=== PATIENT | female | born 1960 | race Caucasian/White ===

== ENCOUNTER 2020-05-16 15:35 | Outpatient (RCR) | payer OTHER, SELFPAY ==
[2020-05-16] MEDS: COVID-19 VACC, MRNA(PFIZER)/PF 30 MCG/0.3 ML SYRINGE IM (17:17)
[2020-06-06] MEDS: COVID-19 VACC, MRNA(PFIZER)/PF 30 MCG/0.3 ML SYRINGE IM (17:01)
== END 2020-08-13 23:59 ==
LOC: IMMUN 15:35
PROVIDERS: Visit Provider Family Medicine
DX: Z23 Encounter for immunization (principal)
CPT/HCPCS: 0001A; 0002A; 91300

== ENCOUNTER 2021-02-21 05:37 | Day surgery (SDC) | payer OTHER, SELFPAY ==
[2021-02-21] VITALS (12 sets, daily range): BP systolic 98–159; BP diastolic 58–128; PULSE 56–81; RESP 14–16; TEMP 36.1–36.6; O2SAT 92–100; BMI 29.5
[2021-02-21] MEDS: Lactated Ringers 1,000 ML 15 ML IV (06:12)
--- NOTE | 2021-02-21 06:20 | HP.PCM_ITS ---
HPI - General HPI Narrative CYRUS ZHOU, is a 61 F who presents screening colonoscopy. Her father has colon cancer. The patient's previous colonoscopy was 5 years ago. She has no specific complaints currently. [facility] Medical History (Updated 02/21/21 @ 06:[address] Zeus Jernigan MD) Non-smoker Wears glasses Home Medications NK 02/20/21 [History Last Taken Unknown] Allergy/AdvReac Type Severity Reaction Status Date / Time No Known Allergies Allergy Verified 02/21/21 06:03 Surgical History (Updated 02/20/21 @ 10:23 by Tonie Beltre) History of suburethral sling procedure Hx of colonoscopy Social History Smoking Status: Never smoker ROS Constitutional Constitutional: Reports systems reviewed and no addt'l complaints, except as documented Cardiovascular Cardiovascular: Denies chest pain Respiratory/Chest Respiratory/Chest: Denies shortness of breath at rest Gastrointestinal Gastrointestinal: Denies abdominal pain, change in bowel habits, hematochezia or melena Vital Signs Vital Signs Vital Signs: 02/21/21 06:04 Temperature 98 F Temperature Source Temporal Pulse Rate 81 Respiratory Rate 16 Respiratory Pattern Normal Blood Pressure 129/81 H Blood Pressure Mean 97 Blood Pressure Source Monitor Blood Pressure Position Semi-Fowlers Blood Pressure Location Right Arm Pulse Ox 96 Oxygen Delivery Method Room Air Weight Weight: 171 lb 15.369 oz Body Mass Index (BMI) 29.5 Physical Exam Const alert, oriented x3 and no apparent distress General Appearance: cooperative and comfortable Eyes General Eye: normal appearance of both eyes Neck General: normal visual inspection Chest inspection of chest normal Resp Effort and Inspection: able to speak in complete sentences and symmetric chest movement Auscultation: clear to auscultation bilaterally Cardio regular rate and regular rhythm GI soft to palpation, non-tender and non-distended Extremity no calf tenderness Neuro oriented x3 Psych thought process normal Assessment & Plan Assessment/Plan (1) Family history of colon cancer in father: PLAN: Family history of colon cancer in her father. Patient presents via open access today. I propose for her a colonoscopy with possible biopsy or polypectomy as indicated. She is aware of the technique, benefit, risk, alternatives. We will proceed as noted. Zeus Jernigan M.D., F.A.C.S.
--- NOTE | 2021-02-21 07:02 | OP.COLON_ITS ---
Patient Name: Liberty Acosta Procedure Date: 02/21/2021 6:14 AM Date of : 1960 Age: 61 Procedure: Colonoscopy Indications: Family history of colon cancer in a first-degree relative Providers: Zeus Jernigan MD Medicines: Midazolam 3.5 mg IV, Meperidine 100 mg IV Patient Profile: Last Colonoscopy: 5 years ago. Complications: No immediate complications. Procedure: Pre-Anesthesia Assessment: - Prior to the procedure, a History and Physical was performed, and patient medications and allergies were reviewed. The patient's tolerance of previous anesthesia was also reviewed. The risks and benefits of the procedure and the sedation options and risks were discussed with the patient. All questions were answered, and informed consent was obtained. Prior Anticoagulants: The patient has taken no previous anticoagulant or antiplatelet agents. ASA Grade Assessment: II - A patient with mild systemic disease. After reviewing the risks and benefits, the patient was deemed in satisfactory condition to undergo the procedure. After I obtained informed consent, the scope was passed under direct vision. Throughout the procedure, the patient's blood pressure, pulse, and oxygen saturations were monitored continuously. The Colonoscope was introduced through the anus and advanced to the cecum, identified by appendiceal orifice and ileocecal valve. The colonoscopy was performed without difficulty. The patient tolerated the procedure well. The quality of the bowel preparation was good. The ileocecal valve and the appendiceal orifice were photographed. Moderate Sedation: Moderate (conscious) sedation was administered by the endoscopy nurse and supervised by the endoscopist. The following parameters were monitored: oxygen saturation, heart rate, blood pressure, and response to care. Total physician intraservice time was 15 minutes. Scope In: 6:47:46 AM Scope Withdrawal Time 0 hours 6 minutes 42 seconds Scope Out: 6:58:16 AM Total Procedure Duration Time 0 hours 10 minutes 30 seconds Findings: The perianal and digital rectal examinations were normal. A few diverticula were found in the sigmoid colon. The exam was otherwise without abnormality. Impression: - Diverticulosis in the sigmoid colon. - The examination was otherwise normal. - No specimens collected. Recommendation: - Discharge patient to home. - Resume previous diet. - Continue present medications. - Repeat colonoscopy in 5 years for surveillance. Procedure Code(s): --- Professional --- 99176, Colonoscopy, flexible; diagnostic, including collection of specimen(s) by brushing or washing, when performed (separate procedure) 50393, 59, Moderate sedation services provided by the same physician or other qualified health technical healthcare consultant performing the diagnostic or therapeutic service that the sedation supports, requiring the presence of an independent trained observer to assist in the monitoring of the patient's level of consciousness and physiological status; initial 15 minutes of intraservice time, patient age 5 years or older Diagnosis Code(s): --- Professional --- Z80.0, Family history of malignant neoplasm of digestive organs K57.30, Diverticulosis of large intestine without perforation or abscess without bleeding CPT copyright 2017 [employer]. All rights reserved. The codes documented in this report are preliminary and upon group dynamics instructor review may be revised to meet current compliance requirements. Zeus Jernigan MD 02/21/2021 7:02:20 AM This report has been signed electronically. Number of Addenda: 0 Note Initiated On: 02/21/2021 6:14 AM
--- NOTE | 2021-02-21 07:02 | OP.CCLET_ITS ---
02/21/2021 No Primary Care Physician Re : Colonoscopy procedure for Liberty Acosta Dear Care Physician This procedure was performed on Sunday, February 21, 2021. My impressions and recommendations are as follows: Impressions : - Diverticulosis in the sigmoid colon. - The examination was otherwise normal. - No specimens collected. Recommendations : - Discharge patient to home. - Resume previous diet. - Continue present medications. - Repeat colonoscopy in 5 years for surveillance. My findings are described in the full procedure note, which is enclosed. If I can be of further assistance, please feel free to contact me at Doctor phone number(s): Work: . Sincerely, Zeus Jernigan MD 02/21/2021 7:02:20 AM This report has been signed electronically.
== END 2021-02-21 08:05 ==
LOC: EN 05:40 → AC 05:40
PROVIDERS: Visit Provider Surgery
PROC: 0DJD8ZZ Inspection of Lower Intestinal Tract, Via Natural or Artificial Opening Endoscopic (ICD-10-PCS; CPT 45378; principal; 2021-02-21 06:25)
DX: Z12.11 Encounter for screening for malignant neoplasm of colon (principal); K57.30 Diverticulosis of large intestine without perforation or abscess without bleeding; Z80.0 Family history of malignant neoplasm of digestive organs
CPT/HCPCS: 45378; 99152; 99153; J7120

== ENCOUNTER → 2021-10-03 | Outpatient (CLI) | payer OTHER, SELFPAY ==
[2021-10-03 10:56] LABS: Cholesterol 177 mg/dL (200); Creatinine, Serum 0.79 mg/dL (0.55-1.02); EST Glomerular Filtration Rate 78 mL/min (>60); Est Glom Filt Rate - Afr Amer 94 mL/min (>60); High Density Lipoprotein 44 mg/dL; Thyroid Stim Hormone (TSH) 1.76 uIU/mL (0.358-3.74); Triglycerides 102 mg/dL; Very Low Density Lipoprotein 20 mg/dL (5-40)
== END | disposition home or self-care (01) ==
LOC: MFPLAB 09:26
PROVIDERS: PCP Family Medicine; Referring Provider Family Medicine; Visit Provider Family Medicine
DX: Z00.00 Encounter for general adult medical examination without abnormal findings (principal)
CPT/HCPCS: 36415; 80061; 82565; 84443

== ENCOUNTER → 2023-09-10 | Outpatient (CLI) | payer OTHER, SELFPAY ==
--- NOTE | 2023-09-10 12:45 | RAD_ITS ---
INDICATION: Left greater than right hip arthritis / decreased range of motion. EXAMINATION/TECHNIQUE: X-RAY - XR Hips Bilateral with Pelvis when performed; 5 Views COMPARISON: No relevant prior comparison study available. FINDINGS: PELVIC BONES: No displaced fracture, destructive or sclerotic lesions. Note that overlapping bowel shadows may however obscure fine detail. Sacroiliac joints are unremarkable. There is mild pubic symphysis arthrosis. HIPS: There is moderate to severe degenerative arthrosis of the left hip joint with moderate to severe joint space narrowing and marginal osteophyte formation. There is mild to moderate degenerative arthrosis of the right hip joint with mild to moderate joint space narrowing and marginal osteophyte formation. No displaced fracture. SOFT TISSUES: No soft tissue swelling or gas. 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 Mild pubic symphysis arthrosis. Electronically Signed: Eliceo Christianson MD at 14:19 EDT ,
--- NOTE | 2023-09-10 12:45 | RAD_ITS ---
STUDY: X-RAY - RIGHT HAND REASON FOR EXAM: Female, 63 years old. Right, arthritis. TECHNIQUE: 3 views of the right hand. COMPARISON: None. FINDINGS: Normal radiocarpal articulation. Normal distal radioulnar joint. Normal visualized carpal bones. There is mild triscaphe arthrosis. There is mild degenerative arthrosis of the first CMC joint, first MCP joint, and interphalangeal joint of the thumb. Normal second through fifth carpometacarpal joints. Normal metacarpi. Normal proximal and distal phalanges of the thumb. Normal metacarpophalangeal joints of the second through fifth fingers. There is moderate to severe degenerative arthrosis of the second through fifth PIP and DIP joints. Normal phalanges of the second through fifth fingers. There is periarticular soft tissue swelling of the fingers. RAD/Hand Min 3 Views IMPRESSION: Moderate to severe degenerative arthrosis of the second through fifth PIP and DIP joints. Mild degenerative arthrosis of the triscaphe joint, first CMC joint, first MCP joint, and interphalangeal joint of the thumb. Electronically Signed: Eliceo Christianson MD at 15:45 EDT ,
--- NOTE | 2023-09-10 12:45 | RAD_ITS ---
STUDY: X-RAY - LEFT HAND REASON FOR EXAM: Female, 63 years old. Left, arthritis. TECHNIQUE: 3 views of the left hand. COMPARISON: None. FINDINGS: Normal radiocarpal articulation. Normal distal radioulnar joint. Normal visualized carpal bones. Normal carpal articulations. There is mild degenerative arthrosis of the first CMC joint, first MCP joint, and interphalangeal joint of the thumb. Normal second through fifth carpometacarpal joints. Normal metacarpi. Normal proximal and distal phalanges of the thumb. Normal metacarpophalangeal joints of the second through fifth fingers. There is moderate to severe degenerative arthrosis of the second through fifth PIP and DIP joints. Normal phalanges of the second through fifth fingers. There is periarticular soft tissue swelling of the fingers. RAD/Hand Min 3 Views IMPRESSION: Moderate to severe degenerative arthrosis of the second through fifth PIP and DIP joints. Mild degenerative arthrosis of the first CMC joint, first MCP joint, and interphalangeal joint of the thumb. Electronically Signed: Eliceo Christianson MD at 15:43 EDT ,
[2023-09-10 14:54] LABS: Absolute Lymphocyte Count 2.79 X10^3/uL (0.83-4.51); Absolute Neutrophil Count 4.1 X10^3/uL (2.0-7.7); Basophil# 0.05 X10^3/uL; Basophil% 0.7 % (0-1); Eosinophil# 0.13 X10^3/uL; Eosinophils% 1.7 % (0-5); Hemoglobin 13.2 g/dL (12.0-15.0); Lymphocyte # 2.79 X10^3/ul (0.83-4.51); Mean Corp Hgb Conc 32.2 g/dL (32-36); Mean Corpuscular Hgb 29.9 pg (27.0-32.0); Mean Platelet Vol. 10.4 fl (6.2-12.0); Monocyte# 0.45 X10^3/uL; NRBC Flagged by Analyzer 0 % (0-5); Neutrophil % 54.3 % (47-70); Platelet Count 299 K/mm3 (150-450); RBC Distribution Width CV 12.3 % (11.6-14.6); RBC Distribution Width SD 42.5 fl (35.1-43.9); Red Blood Count 4.41 M/mm3 (4.2-5.4); White Blood Count 7.5 K/mm3 (4.4-11.0)
[2023-09-10 16:03] LABS: ALB/GLOB Ratio 1.1 RATIO (0.9-2.4); AST(SGOT) 13 U/L (15-37); Alanine Aminotransfer ALT/SGPT 19 U/L (13-56); Albumin, Serum 3.9 g/dL (3.2-5.0); Alkaline Phosphatase 78 U/L (45-117); Anion Gap 7 (5-15); BUN 14 mg/dL (7-18); BUN/Creat Ratio 16.4 RATIO (10-20); CRP 8.81 mg/L (0.0-3.0); Calcium,Total 9.4 mg/dL (8.5-10.1); Chloride 104 mmol/L (98-107); Creatinine, Serum 0.86 mg/dL (0.55-1.02); EST Glomerular Filtration Rate 71 mL/min (>60); Est Glom Filt Rate - Afr Amer 86 mL/min (>60); Globulin 3.6 g/dL (2.2-4.2); Glucose 113 mg/dL (74-106); Potassium 3.5 mmol/L (3.5-5.1); Protein, Total 7.5 g/dL (6.4-8.2); Rheumatoid Factor < 10.0 IU/mL (<15); Sodium Level 139 mmol/L (136-145); Uric Acid 6.8 mg/dL (2.6-6.0)
[2023-09-13 13:07] LABS: ANTINUCLEAR ANTIBODIES DIRECT Negative (Negative)
== END | disposition home or self-care (01) ==
LOC: MTLAB 12:42
PROVIDERS: PCP Family Medicine; Referring Provider Family Medicine; Visit Provider Family Medicine
DX: M19.049 Primary osteoarthritis, unspecified hand (principal); M25.552 Pain in left hip
CPT/HCPCS: 36415; 73130; 73521; 80053; 84550; 85025; 86038; 86140; 86431